=== PATIENT | female | born 1980 | race Caucasian/White ===

== ENCOUNTER 2021-05-10 19:57 | Inpatient (IN) ==
[2021-05-10 21:01] LABS: Bilirubin,Urine Negative (Negative); Blood, Urine Negative (Negative); Glucose,Urine (UA) Negative (Negative); Ketones,Urine Negative (Negative); Mucus,Urine Occasional /LPF (Occasional); Nitrite,Urine Negative (Negative); Protein,Urine Negative; Squamous Epithelial Cell,Urine Occasional /HPF (0-10); Urine Appearance CLEAR (Clear); Urine Color Yellow (Yellow); Urine Specific Gravity 1.005 (1.001-1.035); Urine Urobilinogen < 2.0 EU/DL (<2.0)
[2021-05-10 21:02] LABS: Barbiturates Screen,Urine Negative (Negative); Benzodiazepines Screen,Urine Negative (Negative); Cannabinoid Screen,Urine Negative (Negative); Opiate Screen,Urine Negative (Negative); Phencyclidine Screen,Urine Negative (Negative)
[2021-05-10] MEDS ORDERED: PROMETHAZINE 25 MG/1 ML VIAL IM PRN (22:14)
[2021-05-10] MEDS ORDERED: MEPERIDINE 50 MG/1 ML VIAL IM PRN (22:14)
[2021-05-11] MEDS ORDERED: AMPICILLIN INJ 2,000 MG in SODIUM CHLORIDE 0.9% 100 ML IV ONE (02:50)
[2021-05-11] MEDS ORDERED: LACTATED RINGERS 1,000 ML IV SCH (03:00)
[2021-05-11 03:51] LABS: Basophils % 0.3 % (0.0-0.8); Eosinophils # 0.2 10*3/uL (0.0-0.87); Eosinophils % 1.4 % (0.00-10.9); Hematocrit 28.7 VOL% (35.7-47.0); Hemoglobin 9.3 GM/DL (12.0-16.0); Immature Granulocytes % 0.6 %; Immature Granulocytes Absolute 0.08 #; Lymphocytes # 4.3 10*3/uL (1.4-4.0); Lymphocytes % 33.8 % (21.3-54.2); Mean Corpuscular HGB Conc 32.4 GM/DL (32-36); Mean Corpuscular Volume 83.7 FL (87-102); Monocytes % 7.2 % (1.7-12.7); Neutrophils % 56.7 % (38.7-73.9); Platelet Count 269 T/CUMM (130-400); Red Blood Count 3.43 MC/CUMM (3.8-5.5); Red Cell Distribution Width 15.4 % (9.3-17.3); White Blood Count 12.8 T/CUMM (4-12)
[2021-05-11] MEDS ORDERED: miSOPROStoL 200 MCG TABLET ONE (06:39)
[2021-05-11] MEDS ORDERED: TRANEXAMIC ACID 1,000 MG/10 ML VIAL ONE (06:39)
[2021-05-11] MEDS ORDERED: CARBOPROST TROMETHAMINE 250 MCG/ML AMP IM ONE (06:40)
[2021-05-11] MEDS ORDERED: OXYTOCIN/LR 20 UNIT/1,000 ML BAG IV ONE ×3 (06:40→14:23)
[2021-05-11] MEDS ORDERED: SODIUM CHLORIDE 0.9% 0 ML IV ONE (06:40)
[2021-05-11] MEDS ORDERED: METHYLERGONOVINE 0.2 MG/1 ML AMP ONE (06:40)
[2021-05-11] MEDS: AMPICILLIN INJ 1,000 MG in SODIUM CHLORIDE 0.9% 100 ML IV SCH ×2 (06:44→12:23)
[2021-05-11] MEDS ORDERED: CITRIC ACID/SODIUM CITRATE 30 ML UDCUP PO ONE (07:00)
[2021-05-11] MEDS ORDERED: FAMOTIDINE 20 MG/2 ML VIAL IV ONE (07:00)
[2021-05-11] MEDS ORDERED: OXYTOCIN/LR 30 UNIT/1,000 ML BAG IV ONE (07:02)
[2021-05-11] MEDS ORDERED: OXYTOCIN 10 UNIT/ML VIAL IM ONE (07:02)
[2021-05-11 09:12] LABS: Albumin 2.2 G/DL (3.4-5.0); Bilirubin,Total 0.5 MG/DL (0.20-1.00); Calcium 8.5 MG/DL (8.5-10.1); Osmolality,Calculated 276.4 MOS/KG (273-304); Potassium 3.2 MMOL/L (3.5-5.1); Total Protein 6.4 G/DL (6.4-8.2)
[2021-05-11] MEDS ORDERED: ONDANSETRON 4 MG/2 ML VIAL ONE (09:27)
[2021-05-11] MEDS ORDERED: BUPIVACAINE SPINAL 0.75% 2 ML AMP SPINAL ONE (09:27)
[2021-05-11] MEDS ORDERED: PHENYLEPHRINE 1 MG/10 ML SYRINGE IV ONE ×2 (10:02→10:33)
[2021-05-11] MEDS ORDERED: ePHEDrine 50 MG/ML VIAL ONE (10:08)
[2021-05-11] MEDS ORDERED: LIDOCAINE 2% 5 ML VIAL ONE (10:10)
[2021-05-11] MEDS ORDERED: MIDAZOLAM 2 MG/2 ML VIAL ONE (10:14)
[2021-05-11 10:38] LABS: Cord Arterial Blood HCO3 20.8 MMOL/L
[2021-05-11 10:43] LABS: Cord Venous Blood HCO3 24.8 MMOL/L; Cord Venous Blood PCO2 56.7 MMHG; Cord Venous Blood PO2 22.1 MMHG
[2021-05-11] MEDS ORDERED: GLUCAGON 1 MG VIAL IM PRN (11:18)
[2021-05-11] MEDS ORDERED: DEXTROSE 10% 250 ML BAG IV PRN (11:27)
[2021-05-11] MEDS: ACETAMINOPHEN 500 MG TABLET PO SCH ×2 (12:31→18:54)
[2021-05-11] MEDS: INSULIN REGULAR 100 UNIT/ML SUBCUT SCH ×2 (12:32→18:14)
[2021-05-11 13:17] LABS: Basophils % 0.3 % (0.0-0.8); Eosinophils # 0.1 10*3/uL (0.0-0.87); Eosinophils % 0.7 % (0.00-10.9); Hematocrit 26.6 VOL% (35.7-47.0); Hemoglobin 8.6 GM/DL (12.0-16.0); Immature Granulocytes % 0.9 %; Immature Granulocytes Absolute 0.13 #; Lymphocytes % 21.5 % (21.3-54.2); Mean Corpuscular HGB Conc 32.3 GM/DL (32-36); Mean Corpuscular Volume 84.2 FL (87-102); Mean Platelet Volume 10.2 FL (9.6-12.0); Monocytes % 5.7 % (1.7-12.7); Neutrophils % 70.9 % (38.7-73.9); Platelet Count 276 T/CUMM (130-400); Red Blood Count 3.16 MC/CUMM (3.8-5.5); Red Cell Distribution Width 15.5 % (9.3-17.3); White Blood Count 13.9 T/CUMM (4-12)
[2021-05-11] MEDS: ALBUTEROL/IPRATROPIUM 3 ML NEB RESP TX SCH ×2 (13:40→19:45)
[2021-05-11] MEDS ORDERED: ACETAMINOPHEN 325 MG TABLET PO PRN (14:23)
[2021-05-11] MEDS ORDERED: ONDANSETRON 4 MG/2 ML VIAL IV PRN (14:23)
[2021-05-11] MEDS ORDERED: oxyCODONE/ACETAMINOPHEN 5-325 MG TABLET PO PRN (18:17)
[2021-05-11 19:58] LABS: Basophils # 0.1 10*3/uL (0.0-0.2); Basophils % 0.4 % (0.0-0.8); Eosinophils # 0.2 10*3/uL (0.0-0.87); Eosinophils % 1.1 % (0.00-10.9); Hematocrit 25.3 VOL% (35.7-47.0); Hemoglobin 8.1 GM/DL (12.0-16.0); Immature Granulocytes % 0.5 %; Immature Granulocytes Absolute 0.07 #; Lymphocytes # 3.6 10*3/uL (1.4-4.0); Lymphocytes % 25.1 % (21.3-54.2); Mean Corpuscular Volume 84.1 FL (87-102); Mean Platelet Volume 10.4 FL (9.6-12.0); Monocytes % 7.1 % (1.7-12.7); NRBC # 0.02 10*3/uL; Neutrophils % 65.8 % (38.7-73.9); Platelet Count 274 T/CUMM (130-400); Red Blood Count 3.01 MC/CUMM (3.8-5.5); Red Cell Distribution Width 15.4 % (9.3-17.3); White Blood Count 14.2 T/CUMM (4-12)
[2021-05-11] MEDS: oxyCODONE/ACETAMINOPHEN 5-325 MG TABLET PO PRN (20:45)
[2021-05-11] MEDS: DOCUSATE SODIUM 100 MG CAPSULE PO SCH (21:44)
[2021-05-12] MEDS: INSULIN REGULAR 100 UNIT/ML SUBCUT SCH ×4 (00:20→20:54)
[2021-05-12] MEDS: ALBUTEROL/IPRATROPIUM 3 ML NEB RESP TX SCH ×4 (00:23→20:00)
[2021-05-12] MEDS: oxyCODONE/ACETAMINOPHEN 5-325 MG TABLET PO PRN ×4 (03:03→23:01)
[2021-05-12 06:33] LABS: Basophils # 0.1 10*3/uL (0.0-0.2); Basophils % 0.4 % (0.0-0.8); Eosinophils # 0.2 10*3/uL (0.0-0.87); Eosinophils % 1.3 % (0.00-10.9); Hematocrit 25.4 VOL% (35.7-47.0); Hemoglobin 8.1 GM/DL (12.0-16.0); Immature Granulocytes % 0.6 %; Immature Granulocytes Absolute 0.07 #; Lymphocytes # 2.6 10*3/uL (1.4-4.0); Lymphocytes % 22.3 % (21.3-54.2); Mean Corpuscular HGB Conc 31.9 GM/DL (32-36); Mean Corpuscular Volume 84.7 FL (87-102); Mean Platelet Volume 11.1 FL (9.6-12.0); Monocytes % 9.3 % (1.7-12.7); NRBC # 0.02 10*3/uL; Neutrophils % 66.1 % (38.7-73.9); Platelet Count 267 T/CUMM (130-400); Red Cell Distribution Width 15.4 % (9.3-17.3); White Blood Count 11.8 T/CUMM (4-12)
[2021-05-12] MEDS: MAGNESIUM HYDROXIDE SUSP 30 ML UDCUP PO PRN ×2 (09:30→20:59)
[2021-05-12] MEDS: SIMETHICONE CHEW 80 MG TABLET PO PRN (09:31)
[2021-05-12] MEDS: MULTIVITAMIN (PRENATAL) TABLET PO SCH (09:31)
[2021-05-12] MEDS: metFORMIN 500 MG TABLET PO SCH (09:31)
[2021-05-12] MEDS: DOCUSATE SODIUM 100 MG CAPSULE PO SCH ×2 (09:31→20:59)
[2021-05-12] MEDS: METOCLOPRAMIDE 10 MG TABLET PO SCH ×3 (12:34→20:59)
[2021-05-13] MEDS: ALBUTEROL/IPRATROPIUM 3 ML NEB RESP TX SCH ×4 (00:24→19:23)
[2021-05-13] MEDS: INSULIN REGULAR 100 UNIT/ML SUBCUT SCH ×5 (02:26→21:23)
[2021-05-13] MEDS: ACETAMINOPHEN 500 MG TABLET PO SCH (05:16)
[2021-05-13] MEDS: oxyCODONE/ACETAMINOPHEN 5-325 MG TABLET PO PRN ×4 (06:15→23:45)
[2021-05-13] MEDS: METOCLOPRAMIDE 10 MG TABLET PO SCH ×2 (06:15→15:00)
[2021-05-13] MEDS: MAGNESIUM HYDROXIDE SUSP 30 ML UDCUP PO PRN (08:33)
[2021-05-13] MEDS: DOCUSATE SODIUM 100 MG CAPSULE PO SCH ×2 (08:35→21:19)
[2021-05-13] MEDS: metFORMIN 500 MG TABLET PO SCH (08:35)
[2021-05-13] MEDS: MULTIVITAMIN (PRENATAL) TABLET PO SCH (08:35)
[2021-05-13] MEDS: IBUPROFEN 800 MG TABLET PO SCH ×3 (11:20→23:46)
[2021-05-13] MEDS: FERROUS SULFATE 325 MG TABLET PO SCH ×2 (15:00→21:19)
[2021-05-14] MEDS: ALBUTEROL/IPRATROPIUM 3 ML NEB RESP TX SCH ×3 (00:45→14:25)
[2021-05-14] MEDS: oxyCODONE/ACETAMINOPHEN 5-325 MG TABLET PO PRN ×2 (06:22→12:07)
[2021-05-14] MEDS: IBUPROFEN 800 MG TABLET PO SCH ×2 (06:23→12:06)
[2021-05-14] MEDS: INSULIN REGULAR 100 UNIT/ML SUBCUT SCH ×2 (07:50→12:10)
[2021-05-14 09:05] VITALS: BP 135/72
[2021-05-14] MEDS: DOCUSATE SODIUM 100 MG CAPSULE PO SCH (09:58)
[2021-05-14] MEDS: metFORMIN 500 MG TABLET PO SCH (09:59)
[2021-05-14] MEDS: FERROUS SULFATE 325 MG TABLET PO SCH (09:59)
[2021-05-14] MEDS: MULTIVITAMIN (PRENATAL) TABLET PO SCH (09:59)
[2021-05-14] MEDS: SIMETHICONE CHEW 80 MG TABLET PO PRN (09:59)
[2021-05-14] MEDS ORDERED: INFLUENZA VIRUS VACCINE 0.5 ML SYRINGE IM ONE (15:11)
[2021-05-14] MEDS ORDERED: DIPH/TET/ACEL PERT BOOSTER VACCINE 0.5 ML VIAL IM ONE (15:14)
== END 2021-05-14 16:25 | disposition home or self-care (01) | DRG 786 ==
LOC: N.LDOUT 19:57 → N.LD 19:59 → N.OB 05-11 14:39
PROVIDERS: ADMIT Obstetrics & Gynecology; ATTEND Obstetrics & Gynecology
PROC: LDCSECT (ICD-10-PCS; 2021-05-11 08:30)